=== PATIENT | male | born 1945 | race Caucasian/White ===

== ENCOUNTER 2020-11-06 08:02 | Outpatient (CLI) | payer MEDICARE, SELFPAY ==
[2020-11-06 08:17] LABS: Basophils Absolute Auto 0.02 K/mm3 (0.00-0.10); Basophils Percent Auto 0.2 % (0.0-1.0); Eosinophils Percent Auto 3.5 % (1.0-6.0); Hematocrit 40.8 % (37.0-46.0); Hemoglobin 13.1 g/dL (12.4-15.3); Immature Granulocyte Absolute 0.02 K/mm3 (0.00-0.00); Immature Granulocyte Percent A 0.2 % (0.0-0.0); Lymphocytes Absolute Auto 2.36 K/mm3 (1.10-4.50); Lymphocytes Percent Auto 27.6 % (18.0-42.0); Mean Corpuscular HGB Conc 32.1 g/dL (32.0-36.0); Mean Corpuscular Hemoglobin 27.8 pg (27.0-31.0); Mean Corpuscular Volume 86.6 fL (78.0-102.0); Mean Platelet Volume 9.7 fl (8.7-11.0); Monocytes Percent Auto 9.4 % (2.0-11.0); Neutrophils Absolute Auto 5.1 K/mm3 (1.7-7.2); Neutrophils Percent Auto 59.1 % (50.0-70.0); Platelet Count Result 333 K/mm3 (150-420); Red Blood Count 4.71 M/mm3 (4.70-6.10); Red Cell Distribution Width 15.2 % (11.6-14.4); White Blood Count 8.6 K/mm3 (4.8-10.8)
[2020-11-06 08:23] LABS: Add Urine Microscopic? NO; Appearance Urine Clear (Clear); Bilirubin Urine Negative (Negative); Blood Urine Negative (Negative); Color Urine Yellow (Yellow); Glucose Urine UA Negative (Negative); Ketones Urine Negative (Negative); Leukocyte Esterase Ur Negative (Negative); Nitrate Urine Negative (Negative); Protein Urine Negative (Negative); Urobilinogen Urine 0.2 mg/dL (0.2-1.0)
[2020-11-06 08:42] LABS: Hemoglobin A1C 6.2 % (<5.7)
[2020-11-06 09:06] LABS: Alanine Aminotransferase 35 U/L (16-63); Albumin Level 3.9 g/dL (3.4-5.0); Alkaline Phosphatase 83 U/L (46-116); Anion Gap 6 mmol/L (8-16); Aspartate Amino Transferase 13 U/L (15-37); Bilirubin,Total 0.6 mg/dL (0.00-1.00); Blood Urea Nitrogen 13 mg/dL (7-18); Carbon Dioxide 30 mmol/L (21-32); Chloride 104 mmol/L (98-108); Cholesterol 175 mg/dL (0-200); Estimated Glomerular Filt Rate > 60; Glucose 105 mg/dL (70-99); HDL Direct 45 mg/dL (40-60); LDL Cholesterol Calculated 118 mg/dL (<130); Osmolality Calculated 290 mOsm/kg (285-295); Potassium 4.3 mmol/L (3.5-5.1); Sodium 140 mmol/L (136-145); Total Protein 7.1 g/dL (6.4-8.2); Triglycerides 59 mg/dL (0-150)
== END 2020-11-06 08:03 | disposition home or self-care (01) ==
LOC: CHSLAB 08:08
PROVIDERS: PCP Internal Medicine; Visit Provider Internal Medicine
DX: R73.01 Impaired fasting glucose (principal); Z00.00 Encounter for general adult medical examination without abnormal findings; E78.2 Mixed hyperlipidemia; D64.9 Anemia, unspecified; Z12.5 Encounter for screening for malignant neoplasm of prostate
CPT/HCPCS: 36415; 80053; 80061; 81003; 83036; 84153; 85025; G0103

== ENCOUNTER 2021-03-31 08:31 | Outpatient (CLI) | payer MEDICARE, SELFPAY ==
[2021-03-31 11:46] LABS: Alanine Aminotransferase 37 U/L (16-63); Albumin Level 3.8 g/dL (3.4-5.0); Alkaline Phosphatase 78 U/L (46-116); Anion Gap 12 mmol/L (8-16); Aspartate Amino Transferase 20 U/L (15-37); Bilirubin,Total 0.4 mg/dL (0.00-1.00); Blood Urea Nitrogen 20 mg/dL (7-18); Calcium 8.8 mg/dL (8.5-10.1); Carbon Dioxide 26 mmol/L (21-32); Chloride 106 mmol/L (98-108); Estimated Glomerular Filt Rate > 60; Glucose 100 mg/dL (70-99); Osmolality Calculated 300 mOsm/kg (285-295); Potassium 4.6 mmol/L (3.5-5.1); Sodium 144 mmol/L (136-145)
== END 2021-03-31 08:32 | disposition home or self-care (01) ==
LOC: CHSLAB 08:33
PROVIDERS: PCP Internal Medicine; Visit Provider Internal Medicine
DX: R73.01 Impaired fasting glucose (principal)
CPT/HCPCS: 36415; 80053; 83036

== ENCOUNTER 2021-04-07 01:09 | Day surgery (SDC) | payer MEDICARE, SELFPAY ==
[2021-03-30 10:11] VITALS: BMI 24.3
[2021-04-07 06:21] VITALS: BP 145/77; PULSE 83; RESP 18; TEMP 36.2; O2SAT 100; BMI 22.8
[2021-04-07] MEDS: LACTATED RINGERS 1,000 ML 150 ML IV CONT (06:33)
--- NOTE | 2021-04-07 06:45 | WPDANESEPPF ---
Anes - Initial Pre Proc Eval Procedure: Operation Date: 04/07/21 07:30 Proposed Procedures p Colonoscopy - Alvaro Moser DO Date/Time: 04/07/21 06:45 Surgeon: Alvaro Moser DO Pre Op Diagnosis: abnormal MRI scan Patient Data Age: 76 Gender: M Height: 1.91 m Weight: 82.7 kg Last Vital Signs Temp 36.2 C L 04/07/21 06:21 Pulse 83 04/07/21 06:21 Resp 18 04/07/21 06:21 BP 145/77 H 04/07/21 06:21 Pulse Ox 100 04/07/21 06:21 Allergies Allergy/AdvReac Type Severity Reaction Status Date / Time No Known Allergies Allergy Verified 04/07/21 06:15 Home Medications Medication Instructions Recorded Confirmed Type No Home Medications 11/25/20 04/07/21 History Patient hx anesthesia problems: none Family hx anesthesia problems: none PMFSH Past Medical History Medical History High blood pressure History of elevated PSA Surgical History Surgical History No pertinent past surgical history Family History Family History Father Heart disease Parkinsons disease Mother Breast cancer Diabetes mellitus Sibling Hypertension Diabetes mellitus Heart disease Hyperlipidemia Social History Social History Smoking status: Never smoker Alcohol intake: current Alcohol use details: rare Substance use: never Substance use type: does not use Living arrangements: with family Spiritual care concerns: No Anes - Eval Final PreProcedure Day of Procedure 04/07/21 06:45 Patient weight: normal Heart: regular rate and rhythm Lungs: clear to auscultation Airway: Mallampati scale class II Neurological: alert and oriented Last oral intake: >/= 8 hours ASA classification: II Emergent: no Anesthetic plan: proceed Anesthesia type and monitoring: general GIVS and standard monitoring Informed Consent: The patient's anesthetic plan and its attendant risks and benefits were discussed with the patient/family/POA. Questions were solicited and answers provided to the satisfaction of the patient/family/POA.
--- NOTE | 2021-04-07 07:27 | PM.IMHP ---
H&P: HPI History of Present Illness Date/Time: 04/07/21 07:27 Chief Complaint: Abnormal MRI, prostate cancer, screening for colorectal cancer. Narrative: This is a 76-year-old man who presents for screening colonoscopy. He has never had a colonoscopy before. He denies any family history of colon cancer. Denies any hematochezia or melena. He did recently have some imaging for prostate cancer and there was concern for possible invasion to the rectum. Review of Systems Review of Systems: All systems reviewed & are unremarkable except as noted in HPI and below Eyes: Eyes: Denies change in vision ENT: Denies hearing loss, Denies neck pain and Denies sore throat Cardiovascular: Cardiovascular: Denies chest pain and Denies dyspnea Respiratory: Respiratory: Denies cough, Denies dyspnea and Denies wheezing Genitourinary: Genitourinary: Denies hematuria and Denies dysuria Musculoskeletal: Musculoskeletal: Denies arthralgias, Denies joint swelling and Denies neck pain Allergic/Immunologic: Allergic/Immunologic: Denies wheezing PMFSH Past Medical History Medical History High blood pressure History of elevated PSA Surgical History Surgical History No pertinent past surgical history Family History Family History Father Heart disease Parkinsons disease Mother Breast cancer Diabetes mellitus Sibling Hypertension Diabetes mellitus Heart disease Hyperlipidemia Social History Social History Smoking status: Never smoker Alcohol intake: current Alcohol use details: rare Substance use: never Substance use type: does not use Living arrangements: with family Spiritual care concerns: No Meds Home Medications and Allergies Home Medications Medication Instructions Recorded Confirmed Type No Home Medications 11/25/20 04/07/21 History Allergies Allergy/AdvReac Type Severity Reaction Status Date / Time No Known Allergies Allergy Verified 04/07/21 06:15 Vital Signs Vital Signs - 24 hr 04/07/21 06:21 Temperature 36.2 C L Pulse Rate 83 Respiratory Rate 18 Blood Pressure 145/77 H Pulse Oximetry 100 Exam Const: General: alert; No acute distress Orientation/consciousness: patient oriented x3 Limitations: no limitations HENMT: Head: normocephalic and atraumatic Ears: hearing grossly normal bilaterally General nose exam: Normal external nose present and Normal nares present Mouth: Yes Normal oral and palatal mucosa present and Yes moist mucous membranes Eyes: General: appearance normal, both eyes and all related structures Conjunctivae: conjunctivae normal Sclera: sclerae normal Pupils: Equal, round and reactive pupils present EOM: EOMs intact bilaterally Neck: Neck: normal visual inspection, full ROM, no lymphadenopathy, supple and no JVD Lymphatic: no lymphadenopathy noted Chest: Chest palpation & inspection: normal inspection of the chest Resp: Effort & Inspection: normal respiratory effort and able to speak in complete sentences Auscultation: clear to auscultation bilaterally Percussion: percussion normal Cardio: Jugular venous distension: no JVD Rate: regular rate Rhythm: regular rhythm Heart sounds: S1 normal heart sound present and S2 normal heart sound present Peripheral pulses: Peripheral pulses 2+ throughout GI: Inspection: normal to inspection GI Palp: No abdominal tenderness, Yes Soft to palpation, No Guarding due to palpation present (GI), No Hernia present and No Rebound tenderness present Percussion: Yes normal to percussion Auscultation: normal bowel sounds : General: Yes no CVA tenderness Back/Spine/Pelvis: Back: no CVA tenderness Skin: General skin exam: normal color and dry skin Neuro: General: patient oriented x3, gait
[2021-04-07 08:07] VITALS: BP 124/58; PULSE 60; RESP 18; O2SAT 100
[2021-04-07 08:17] VITALS: BP 110/50; PULSE 54; RESP 16; O2SAT 100
[2021-04-07 08:27] VITALS: BP 130/63; PULSE 56; RESP 20; O2SAT 100
== END 2021-04-07 08:35 | disposition home or self-care (01) ==
PROVIDERS: PCP Internal Medicine; Visit Provider Surgery
PROC: 0DJD8ZZ Inspection of Lower Intestinal Tract, Via Natural or Artificial Opening Endoscopic (ICD-10-PCS; CPT 45378; principal; 2021-04-07 07:30)
DX: Z12.11 Encounter for screening for malignant neoplasm of colon (principal); K57.30 Diverticulosis of large intestine without perforation or abscess without bleeding; C61 Malignant neoplasm of prostate
CPT/HCPCS: 45380; 88305; J2704; J7120

== ENCOUNTER 2021-06-14 08:07 | Outpatient (CLI) | payer MEDICARE, SELFPAY ==
--- NOTE | ~2021-06-14 | MR_ITS ---
EXAMINATION: MR pelvis wo/w con DATE: 06/14/2021 10:15 INDICATION: Malignant neoplasm of the prostate TECHNIQUE: Magnetic resonance imaging (MRI) of the pelvis was performed without and with 17 mL Multih ance intravenous contrast. Full-field sequences of the pelvis included axial and coronal T2-weighted SS FSE, axial, sagittal and coronal 2D FIESTA, axial 2D FIESTA FS, axial SSFSE-IR SUNDEEP, axial dual-ech o T1-weighted FSPGR, axial and coronal T1 weighted LAVA, 3D axial T2 Cube, axial diffusion-weighted S E with apparent diffusion coefficient (ADC) maps. Postcontrast sequences included a time course axial T1-weighted LAVA and sagittal and coronal T1-weighted LAVA. COMPARISON: None. FINDINGS: Prostatomegaly measuring 5.7 x 4.9 x 6.2 cm. There is some heterogeneous increased T1 signal in the r ight lobe of the prostate and posteriorly along both the left and right prostatic lobes which could r epresent hemorrhage related to biopsy. There appears be a smooth intact peripheral capsule of the pro state. Loculated nonenhancing region of homogeneous increased T2 signal likely representing hydrogel located between the posterior prostate and the anterior margin of the rectum which measures 4.5 cm cr aniocaudally and up to 3.9 x 1.5 cm maximal transaxial dimensions. Bladder is normal. Visualized port ions of the bowels are unremarkable. Visualized lower poles of the kidneys are normal. No pathologica lly enlarged pelvic or inguinal lymphadenopathy. Mild disc height loss at L4-L5 with minimal degenera tive endplate changes. Marrow signal is otherwise normal with no evident metastatic lesions or other pathologic marrow replacing process. IMPRESSION: 1. Small collection of likely hydrocele is between the rectum and the posterior margin of the enlarge d prostate. 2. No evident metastatic disease. Reviewed, dictated and finalized at location A. IMPRESSION: 1. Small collection of likely hydrocele is between the rectum and the posterior margin of the enlarged prostate. 2. No evident metastatic disease.
--- NOTE | ~2021-06-14 | NM_ITS ---
EXAMINATION: NM bone scan whole body DATE: 06/14/2021 12:44 INDICATION: Malignant neoplasm of the prostate TECHNIQUE: 21.2 mCi Tc-99m HDP was administered intravenously. Delayed whole-body scintigrams were o btained. COMPARISON: Pelvis MRI dated 06/14/2021 FINDINGS: Mild likely degenerative joint centered uptake at the medial compartments of the bilateral knees and at the radial aspect of the bilateral carpi. Small focus of mild increased uptake at the left ischial tuberosity appears to correspond to small enthesophytes and mild tendinopathy at the proximal hamstr ing tendon origin on the prior MRI. Otherwise physiologic distribution of bone and soft tissue activi ty. No evident metastatic disease. IMPRESSION: 1. No evident metastatic disease. Reviewed, dictated and finalized at location A.
[2021-06-14 09:27] LABS: Estimated Glomerular Filt Rate > 60
== END 2021-06-14 08:08 | disposition home or self-care (01) ==
LOC: ANHIMG 08:14
PROVIDERS: PCP Internal Medicine; Visit Provider Radiology Radiation Oncology
DX: C61 Malignant neoplasm of prostate (principal)
CPT/HCPCS: 72197; 78306; A9561; A9577

== ENCOUNTER 2022-02-18 10:29 | Emergency (ER) | payer MEDICARE, SELFPAY ==
[2022-02-18] VITALS (18 sets, daily range): BP systolic 132–161; BP diastolic 81–90; PULSE 76–80; RESP 16–20; TEMP 36.7; O2SAT 97–100
--- NOTE | ~2022-02-18 | XR_ITS ---
EXAMINATION: XR chest 1V portable INDICATION: Pain after fall TECHNIQUE: Portable AP chest at 1058 hours COMPARISON: None available FINDINGS: The lungs are free of acute opacities. No pleural effusion or pneumothorax. The cardiomedia stinal silhouette is normal. IMPRESSION: 1. No acute cardiopulmonary abnormality. Reviewed, dictated and finalized at location A.
--- NOTE | ~2022-02-18 | XR_ITS ---
EXAMINATION: XR hip RT min 2V DATE: 02/18/2022 11:07 INDICATION: Right hip pain after fall, initial encounter TECHNIQUE: Two views of the right hip are obtained on three radiographs. COMPARISON: None. FINDINGS: There is a comminuted intertrochanteric fracture of the right femoral neck. The femoral hea d is well-seated in the acetabulum. No additional fracture is identified. The soft tissues are unrema rkable. IMPRESSION: 1. Comminuted intertrochanteric fracture of the right femoral neck. Reviewed, dictated and finalized at location A.
--- NOTE | 2022-02-18 10:41 | ECG_ITS ---
Measurements Intervals [place] Rate: 75 P: 54 VT: 158 QRS: 5 QRSD: 104 T: 13 QT: 413 QTc: 464 Interpretive Statements SINUS RHYTHM MILD NONSPECIFIC ST DEPRESSION [0.05+ mV ST DEPRESSION] NO PREVIOUS ECG AVAILABLE FOR COMPARISON Electronically Signed On 02-19-2022 7:04:44 CDT by Garcia Bro M.D.
--- NOTE | 2022-02-18 10:58 | ED.LOWEXIN ---
HPI - Extremity Injury (Lower) General Chief Complaint: Extremity Injury, Lower <Yamini Cortez PA-C - Last Filed: 02/18/22 12:39> Stated Complaint: fall, hip injury <Yamini Cortez PA-C - Last Filed: 02/18/22 12:39> Time Seen by Provider: 02/18/22 10:42 <Yamini Cortez PA-C - Last Filed: 02/18/22 12:39> Source: patient and family <Yamini Cortez PA-C - Last Filed: 02/18/22 12:39> Mode of arrival: EMS <Yamini Cortez PA-C - Last Filed: 02/18/22 12:39> Limitations: no limitations <Yamini Cortez PA-C - Last Filed: 02/18/22 12:39> History of Present Illness HPI Narrative: Patient is a 77-year-old male who presents the ED via EMS with report of right hip pain. Patient reports he was washing his car today and tripped over a bucket filled w/ water, landing directly onto his right hip. He did not hit his head or lose consciousness. No prodromal symptoms. He was unable to ambulate after the fall, thus EMS was called. Patient has deformity to right hip with external rotation and shortening of right leg. He states if he does not move, the pain is bearable. No other injuries. No recent cough, cold symptoms, fever. Per family at bedside, patient completed radiation therapy for prostate cancer in August at an outpatient facility in [place], [place] under Dr. Blood, Urology, and Dr. Roberson. Patient takes an aspirin 81 mg daily. No other blood thinners. <Yamini Cortez PA-C - Last Filed: 02/18/22 12:39> Related Data Home Medications: Home Medications Medication Instructions Recorded Confirmed multivitamin 1 tablet PO DAILY 02/18/22 vitamins A,C,N-onxq-ochgyo 14,320 1 cap PO BID 02/18/22 unit-226 mg-200 unit capsule (PreserVision AREDS) <Yamini Cortez PA-C - Last Filed: 02/18/22 12:39> Allergies/Adverse Reactions: Allergies Allergy/AdvReac Type Severity Reaction Status Date / Time No Known Allergies Allergy Verified 02/18/22 10:43 <Yamini Cortez PA-C - Last Filed: 02/18/22 12:39> Review of Systems Review of Systems: CONSTITUTIONAL: Denies fever, chills. EYES: Denies vision changes. CARDIOVASCULAR: Denies chest pain. RESPIRATORY: Denies cough or dyspnea. GASTROINTESTINAL: Denies nausea, vomiting. MUSCULOSKELETAL: Reports right hip pain. Denies back pain. NEUROLOGIC: Denies HI, LOC, headache, numbness, or weakness. <Yamini Cortez PA-C - Last Filed: 02/18/22 12:39> All systems reviewed & are unremarkable except as noted in HPI and below <Yamini Cortez PA-C - Last Filed: 02/18/22 12:39> PMFSH Past Medical History Medical History: Medical History (Updated 02/18/22 @ 12:39 by Yamini Cortez PA-C) High blood pressure History of elevated PSA History of prostate cancer <Yamini Cortez PA-C - Last Filed: 02/18/22 12:39> Surgical History Surgical History: Surgical History No pertinent past surgical history <Yamini Cortez PA-C - Last Filed: 02/18/22 12:39> Family History Family History: Family History Father Heart disease Parkinsons disease Mother Breast cancer Diabetes mellitus Sibling Hypertension Diabetes mellitus Heart disease Hyperlipidemia <Yamini Cortez PA-C - Last Filed: 02/18/22 12:39> Social History Social History: Social History Smoking status: Never smoker Alcohol intake: current Alcohol use details: rare Substance use: never Substance use type: does not use Spiritual care concerns: No <Yamini Cortez PA-C - Last Filed: 02/18/22 12:39> Exam Narrative: GENERAL: Well appearing, well-nourished, non-toxic, in no acute distress. HEAD: Normocephalic, atraumatic. EYES: PERRL/EOMI, conjunctivae clear bilaterally. NECK: Supple. No adenopathy, no masses. RESPIRATORY: Airway patent, respirations nonlabored.
[2022-02-18 11:00] LABS: Basophils Percent Auto 0.6 % (0.2-1.2); Eosinophils Absolute Auto 0.4 K/mm3 (0-0.3); Eosinophils Percent Auto 6.5 % (0-4.4); Hematocrit 40.1 % (42.0-52.0); Hemoglobin 12.7 g/dL (14.0-18.0); Immature Granulocyte Absolute 0.01 K/mm3 (0.00-0.031); Immature Granulocyte Percent A 0.2 % (0-0.5); Lymphocytes Absolute Auto 1.53 K/mm3 (0.9-3.2); Lymphocytes Percent Auto 23.1 % (18.3-44.2); Mean Corpuscular HGB Conc 31.7 g/dl (32-36); Mean Corpuscular Hemoglobin 28.9 pg (26-34); Mean Corpuscular Volume 91.1 fl (80-100); Mean Platelet Volume 10.4 fl (7.4-10.4); Monocytes Absolute Auto 0.7 K/mm3 (0.1-0.6); Monocytes Percent Auto 10.3 % (2.6-8.5); Neutrophils Absolute Auto 3.9 K/mm3 (1.3-6.7); Neutrophils Percent Auto 59.3 % (45.5-73.1); Platelet Count Result 299 k/mm3 (150-375); Red Cell Distribution Width 14.5 % (11.5-14.5); White Blood Count 6.6 K/mm3 (4.5-10.0)
[2022-02-18 11:46] LABS: Anion Gap 5 mmol/L (8-16); Blood Urea Nitrogen 12 mg/dL (9-20); Calcium 8.4 mg/dL (8.4-10.2); Carbon Dioxide 25 mmol/L (22-30); Chloride 108 mmol/L (98-107); Estimated CRCL calculation 74 ml/min; Estimated Glomerular Filt Rate > 60; Glucose 111 mg/dL (65-110); Potassium 3.7 mmol/L (3.4-5.0); Sodium 138 mmol/L (137-145)
[2022-02-18 12:09] LABS: SARS-CoV-2 RNA PCR Negative
[2022-02-18] MEDS: ONDANSETRON INJ 4 MG/2 ML VIAL IV PUSH (12:40)
[2022-02-18] MEDS: MORPHINE SULFATE (*CRX) 4 MG/ML INJ IV PUSH (12:40)
== END 2022-02-18 14:30 | disposition short-term general hospital (02) ==
PROVIDERS: Physician Assistant; Emergency Provider Emergency Medicine; PCP Internal Medicine
DX: S72.141A Displaced intertrochanteric fracture of right femur, initial encounter for closed fracture (principal); Z20.822 Contact with and (suspected) exposure to COVID-19; Z85.46 Personal history of malignant neoplasm of prostate; Z92.3 Personal history of irradiation; Z79.82 Long term (current) use of aspirin; W18.09XA Striking against other object with subsequent fall, initial encounter
CPT/HCPCS: 36415; 71045; 73502; 80048; 85025; 93005; 96374; 96375; 99285; C9803; J2270; J2405; U0003; U0005

== ENCOUNTER 2022-02-28 07:56 | Outpatient (CLI) | payer MEDICARE, SELFPAY ==
[2022-02-28 08:17] LABS: Basophils Absolute Auto 0.02 K/mm3 (0.00-0.10); Basophils Percent Auto 0.3 % (0.0-1.0); Eosinophils Percent Auto 4.3 % (1.0-6.0); Hematocrit 29.5 % (37.0-46.0); Hemoglobin 9.6 g/dL (12.4-15.3); Immature Granulocyte Absolute 0.04 K/mm3 (0.00-0.00); Immature Granulocyte Percent A 0.6 % (0.0-0.0); Immature Platelet Fraction Pct 0.9 % (1.0-7.0); Lymphocytes Absolute Auto 1.01 K/mm3 (1.10-4.50); Lymphocytes Percent Auto 14.5 % (18.0-42.0); Mean Corpuscular HGB Conc 32.5 g/dL (32.0-36.0); Mean Corpuscular Hemoglobin 29.5 pg (27.0-31.0); Mean Corpuscular Volume 90.8 fL (78.0-102.0); Mean Platelet Volume 8.5 fl (8.7-11.0); Monocytes Absolute Auto 0.64 K/mm3 (0.10-0.90); Monocytes Percent Auto 9.2 % (2.0-11.0); Neutrophils Percent Auto 71.1 % (50.0-70.0); Platelet Count Result 652 K/mm3 (150-420); Red Blood Count 3.25 M/mm3 (4.70-6.10); Red Cell Distribution Width 14.3 % (11.6-14.4)
[2022-02-28 08:41] LABS: Alanine Aminotransferase 62 U/L (16-63); Albumin Level 2.5 g/dL (3.4-5.0); Alkaline Phosphatase 118 U/L (46-116); Anion Gap 8 mmol/L (8-16); Aspartate Amino Transferase 34 U/L (15-37); Bilirubin,Total 0.4 mg/dL (0.00-1.00); Blood Urea Nitrogen 18 mg/dL (7-18); Calcium 8.5 mg/dL (8.5-10.1); Carbon Dioxide 27 mmol/L (21-32); Chloride 104 mmol/L (98-108); Cholesterol 143 mg/dL (0-200); Creatine Kinase 95 U/L (39-308); Estimated Glomerular Filt Rate > 60; Glucose 113 mg/dL (70-99); HDL Direct 36 mg/dL (40-60); LDL Cholesterol Calculated 89 mg/dL (<130); Osmolality Calculated 290 mOsm/kg (285-295); Potassium 4.1 mmol/L (3.5-5.1); Sodium 139 mmol/L (136-145); Total Protein 6.3 g/dL (6.4-8.2); Triglycerides 90 mg/dL (0-150)
[2022-02-28 08:43] LABS: Hemoglobin A1C 6.1 % (<5.7)
[2022-02-28 16:22] LABS: Add Urine Microscopic? YES; Appearance Urine Turbid (Clear); Bilirubin Urine Negative (Negative); Blood Urine Negative (Negative); Color Urine Yellow (Yellow); Glucose Urine UA Negative (Negative); Ketones Urine Negative (Negative); Leukocyte Esterase Ur Negative LEU/UL (Negative); Nitrate Urine Negative (Negative); Protein Urine Negative (Negative); Specific Grav Ur 1.025 (1.010-1.020)
[2022-02-28 16:24] LABS: Creatinine Urine 214.17 mg/dL (40-278); Microalbumin Urine Random < 13.0 mg/L
[2022-02-28 16:33] LABS: Amorphous Sediment Urine Heavy; Bacteria Urine Trace /hpf; RBC Urine None seen /hpf (0-2); Squamous Epithelial Cell Urine Rare /hpf (Few); WBC Urine None seen /hpf (0-3)
[2022-02-28 16:34] LABS: Calcium Oxalate Crystals Urine Present /hpf
== END 2022-02-28 07:57 | disposition home or self-care (01) ==
LOC: CHSLAB 07:59
PROVIDERS: PCP Internal Medicine; Visit Provider Internal Medicine
DX: E78.5 Hyperlipidemia, unspecified (principal); I10 Essential (primary) hypertension; N39.0 Urinary tract infection, site not specified; R73.01 Impaired fasting glucose
CPT/HCPCS: 36415; 80053; 80061; 81001; 82043; 82550; 83036; 85025; 85055

== ENCOUNTER 2022-04-05 08:51 | Outpatient (RCR) | payer MEDICARE, SELFPAY ==
--- NOTE | 2022-04-05 10:01 | PTOPEVAL ---
Thank you for referring Jabier Hagen to [facility].? The patient is scheduled to be seen for therapy? __2__x/week for 10 visits. Please review, sign, date and return this plan of care MEGA. I agree with and certify that the following plan of care is medically necessary. Referring Physician Date Admitting Provider: Attending Provider: Iam Hoffman, Referring Provider: *PT Outpatient Evaluation Start: 04/05/22 09:04 Freq: Status: Active Protocol: Document 04/05/22 09:04 OLGA (Rec: 04/05/22 10:00 OLGA [email or web address]) Therapy Assessment Status Assessment Status Assessment Status Evaluation Outpatient Past Medical History Neurological History Hx Neurological Disorders No Significant History Cardiovascular History Hx Cardiac Disorders No Significant History Respiratory History Hx Respiratory Disorders No Significant History Gastrointestinal History Hx Gastrointestinal Disorders No Significant History Genitourinary History Hx Genitourinary Disorders No Significant History Musculoskeletal History Hx Musculoskeletal Disorders No Significant History Hematological History Hx Hematological Disorders No Significant History Endocrine History Hx Endocrine Disorders No Significant History HEENT History Hx Other HEENT Disorders Yes: macular degeneration Integumentary History Hx Skin Disorders No Significant History Reproductive History Hx Reproductive Disorders No Significant History Psychosocial History Hx Psychiatric Disorders No Significant History Pain History History of Any Previous or Ongoing No Significant History Instance of Pain Anesthesia History Hx Anesthesia Reactions No Significant History Evaluation Information Problem Diagnosis right LISY Onset 02/18/22 Subjective Information Pt. reports that he fell after Query Text:As Reported By Patient/ tripping over a bucket while Family washing his car and broke the right hip. He underwent surgery the following day. He reports that he underwent HH therapy for a couple weeks after surgery. He states that he is currently doing daily exercise provided by . He does notes some pain in the right hip still. He states that he is currently using a cane and feels he is not as mobile as he was prior to his injury. He states that he was very active prior to the fall
== END 2022-04-24 14:25 | disposition home or self-care (01) ==
LOC: CHSPT 08:51
PROVIDERS: PCP Internal Medicine; Visit Provider Orthopaedic Surgery Adult Reconstructive Orthopaedic Surgery
DX: M25.551 Pain in right hip (principal); Z96.641 Presence of right artificial hip joint
CPT/HCPCS: 97110; 97112; 97161; 97530

== ENCOUNTER 2022-09-19 07:58 | Outpatient (CLI) | payer MEDICARE, SELFPAY ==
[2022-09-19 08:16] LABS: Add Urine Microscopic? NO; Appearance Urine Clear (Clear); Bilirubin Urine Negative (Negative); Blood Urine Negative (Negative); Color Urine Light Yellow (Yellow); Glucose Urine UA Negative (Negative); Ketones Urine Negative (Negative); Leukocyte Esterase Ur Negative (Negative); Nitrate Urine Negative (Negative); Protein Urine Negative (Negative); Urobilinogen Urine 0.2 mg/dL (0.2-1.0); pH Urine 6.5 (5.0-8.0)
[2022-09-19 08:27] LABS: Basophils Absolute Auto 0.04 K/mm3 (0.00-0.10); Basophils Percent Auto 0.7 % (0.0-1.0); Eosinophils Absolute Auto 0.44 K/mm3 (0.02-0.50); Eosinophils Percent Auto 8.2 % (1.0-6.0); Hematocrit 36.8 % (37.0-46.0); Hemoglobin 11.7 g/dL (12.4-15.3); Immature Granulocyte Absolute 0.01 K/mm3 (0.00-0.00); Immature Granulocyte Percent A 0.2 % (0.0-0.0); Lymphocytes Absolute Auto 1.44 K/mm3 (1.10-4.50); Lymphocytes Percent Auto 26.8 % (18.0-42.0); Mean Corpuscular HGB Conc 31.8 g/dL (32.0-36.0); Mean Corpuscular Hemoglobin 27.9 pg (27.0-31.0); Mean Corpuscular Volume 87.8 fL (78.0-102.0); Monocytes Absolute Auto 0.49 K/mm3 (0.10-0.90); Monocytes Percent Auto 9.1 % (2.0-11.0); Platelet Count Result 309 K/mm3 (150-420); Red Blood Count 4.19 M/mm3 (4.70-6.10); Red Cell Distribution Width 15.3 % (11.6-14.4); White Blood Count 5.4 K/mm3 (4.8-10.8)
[2022-09-19 08:42] LABS: Hemoglobin A1C 6.2 % (<5.7)
[2022-09-19 09:16] LABS: Anion Gap 7 mmol/L (8-16); Blood Urea Nitrogen 13 mg/dL (7-18); Carbon Dioxide 30 mmol/L (21-32); Chloride 106 mmol/L (98-108); Cholesterol 185 mg/dL (0-200); Estimated Glomerular Filt Rate > 60; Ferritin 19 ng/mL (26-388); Glucose 107 mg/dL (70-99); HDL Direct 50 mg/dL (40-60); Iron 75 ug/dL (65-175); LDL Cholesterol Calculated 121 mg/dL (<130); Osmolality Calculated 296 mOsm/kg (285-295); Percent Iron Saturation 22 % (12-57); Potassium 4.5 mmol/L (3.5-5.1); Sodium 143 mmol/L (136-145); Triglycerides 68 mg/dL (0-150); Vitamin B12 391 pg/mL (193-986)
== END 2022-09-19 07:59 | disposition home or self-care (01) ==
LOC: CHSLAB 08:00
PROVIDERS: PCP Internal Medicine; Visit Provider Internal Medicine
DX: D64.9 Anemia, unspecified (principal); R73.01 Impaired fasting glucose; I10 Essential (primary) hypertension
CPT/HCPCS: 36415; 80048; 80061; 81003; 82607; 82728; 83036; 83540; 83550; 85025

== ENCOUNTER 2022-10-04 14:07 | Outpatient (CLI) | payer MEDICARE, SELFPAY ==
--- NOTE | ~2022-10-04 | US_ITS ---
EXAMINATION: US carotid duplex BI DATE: 10/04/2022 15:03 INDICATION: Left carotid bruit TECHNIQUE: Grayscale, color Doppler, and pulsed Doppler images of the cervical carotid arteries were obtained. The degree of vessel stenosis is placed in one of the following categories: normal, <50%, 5 0-69%, >=70% but less than near-occlusion, near-occlusion, or total occlusion. Note that percent sten osis relative to normal distal artery lumen diameter is indirectly measured from velocity measurement s as described by Alan, et al. Radiology 2003; 229:340-346. COMPARISON: None. FINDINGS: RIGHT: The right common carotid artery (CCA) peak systolic velocity (PSV) is 99 cm/s. The right internal car otid artery (ICA) PSV is 76 cm/s. The right ICA end-diastolic velocity (EDV) is 21 cm/s. The right IC A/CCA PSV ratio is 0.8. Grayscale and color Doppler images yield an estimate of <50% diameter reducti on from plaque in the ICA. The external carotid artery (ECA) PSV is 127 cm/s. There is antegrade flow in the right vertebral artery. LEFT: The left CCA PSV is 119 cm/s. The left ICA PSV is 142 cm/s. The left ICA EDV is 29 cm/s. The left ICA /CCA PSV ratio is 1.2. Grayscale and color Doppler images including secondary Doppler criteria yield an estimate of <50% diameter reduction from plaque in the ICA. The ECA PSV is 131 cm/s. There is ante grade flow in the left vertebral artery. IMPRESSION: 1. <50% stenosis in the right internal carotid artery. 2. <50% stenosis in the left internal carotid artery. Reviewed, dictated and finalized at location A. L MACHINIST
== END 2022-10-04 14:08 | disposition home or self-care (01) ==
LOC: CHSIMG 14:08
PROVIDERS: PCP Internal Medicine; Visit Provider Internal Medicine
DX: R09.89 Other specified symptoms and signs involving the circulatory and respiratory systems (principal); I65.23 Occlusion and stenosis of bilateral carotid arteries
CPT/HCPCS: 93880

== ENCOUNTER 2023-01-01 08:00 | Outpatient (CLI) | payer MEDICARE, SELFPAY ==
[2023-01-01 08:20] LABS: Basophils Absolute Auto 0.02 K/mm3 (0.00-0.10); Basophils Percent Auto 0.3 % (0.0-1.0); Eosinophils Absolute Auto 0.36 K/mm3 (0.02-0.50); Eosinophils Percent Auto 5.6 % (1.0-6.0); Hemoglobin 11.3 g/dL (12.4-15.3); Immature Granulocyte Absolute 0.01 K/mm3 (0.00-0.00); Immature Granulocyte Percent A 0.2 % (0.0-0.0); Lymphocytes Absolute Auto 1.35 K/mm3 (1.10-4.50); Lymphocytes Percent Auto 20.9 % (18.0-42.0); Mean Corpuscular HGB Conc 32.3 g/dL (32.0-36.0); Mean Corpuscular Hemoglobin 28.5 pg (27.0-31.0); Mean Corpuscular Volume 88.4 fL (78.0-102.0); Mean Platelet Volume 9.4 fl (8.7-11.0); Monocytes Absolute Auto 0.54 K/mm3 (0.10-0.90); Monocytes Percent Auto 8.4 % (2.0-11.0); Neutrophils Absolute Auto 4.2 K/mm3 (1.7-7.2); Neutrophils Percent Auto 64.6 % (50.0-70.0); Platelet Count Result 278 K/mm3 (150-420); Red Blood Count 3.96 M/mm3 (4.70-6.10); Red Cell Distribution Width 15.7 % (11.6-14.4); White Blood Count 6.5 K/mm3 (4.8-10.8)
[2023-01-01 08:22] LABS: Appearance Urine Clear (Clear); Bilirubin Urine Negative (Negative); Blood Urine Negative (Negative); Color Urine Light Yellow (Yellow); Glucose Urine UA Negative (Negative); Ketones Urine Negative (Negative); Leukocyte Esterase Ur Negative LEU/UL (Negative); Nitrate Urine Negative (Negative); Protein Urine Negative (Negative); Urobilinogen Urine 0.2 mg/dL (0.2-1.0)
[2023-01-01 08:24] LABS: Add Urine Microscopic? NO
[2023-01-01 08:31] LABS: Hemoglobin A1C 5.7 % (<5.7)
[2023-01-01 09:25] LABS: Alanine Aminotransferase 36 U/L (16-63); Albumin Level 3.5 g/dL (3.4-5.0); Alkaline Phosphatase 85 U/L (46-116); Anion Gap 9 mmol/L (8-16); Aspartate Amino Transferase 21 U/L (15-37); Bilirubin,Total 0.3 mg/dL (0.00-1.00); Blood Urea Nitrogen 16 mg/dL (7-18); Calcium 8.8 mg/dL (8.5-10.1); Carbon Dioxide 28 mmol/L (21-32); Chloride 105 mmol/L (98-108); Estimated Glomerular Filt Rate > 60; Glucose 98 mg/dL (70-99); Osmolality Calculated 295 mOsm/kg (285-295); Potassium 4.7 mmol/L (3.5-5.1); Sodium 142 mmol/L (136-145); Total Protein 6.6 g/dL (6.4-8.2); Vitamin B12 848 pg/mL (193-986)
== END 2023-01-01 08:01 | disposition home or self-care (01) ==
LOC: CHSLAB 08:01
PROVIDERS: PCP Internal Medicine; Visit Provider Internal Medicine
DX: D64.9 Anemia, unspecified (principal); E78.2 Mixed hyperlipidemia; R73.01 Impaired fasting glucose
CPT/HCPCS: 36415; 80053; 81003; 82607; 83036; 85025

== ENCOUNTER 2023-07-04 08:01 | Outpatient (CLI) | payer MEDICARE, SELFPAY ==
[2023-07-04 08:26] LABS: Basophils Absolute Auto 0.03 K/mm3 (0.00-0.10); Basophils Percent Auto 0.5 % (0.0-1.0); Eosinophils Absolute Auto 0.35 K/mm3 (0.02-0.50); Eosinophils Percent Auto 6.2 % (1.0-6.0); Hematocrit 36.8 % (37.0-46.0); Hemoglobin 11.8 g/dL (12.4-15.3); Immature Granulocyte Absolute 0.01 K/mm3 (0.00-0.00); Immature Granulocyte Percent A 0.2 % (0.0-0.0); Lymphocytes Absolute Auto 1.34 K/mm3 (1.10-4.50); Lymphocytes Percent Auto 23.8 % (18.0-42.0); Mean Corpuscular HGB Conc 32.1 g/dL (32.0-36.0); Mean Corpuscular Hemoglobin 28.9 pg (27.0-31.0); Mean Corpuscular Volume 90.2 fL (78.0-102.0); Mean Platelet Volume 9.8 fl (8.7-11.0); Monocytes Absolute Auto 0.51 K/mm3 (0.10-0.90); Monocytes Percent Auto 9.1 % (2.0-11.0); Neutrophils Absolute Auto 3.4 K/mm3 (1.7-7.2); Neutrophils Percent Auto 60.2 % (50.0-70.0); Platelet Count Result 292 K/mm3 (150-420); Red Blood Count 4.08 M/mm3 (4.70-6.10); Red Cell Distribution Width 14.6 % (11.6-14.4); White Blood Count 5.6 K/mm3 (4.8-10.8)
[2023-07-04 08:35] LABS: Appearance Urine Clear (Clear); Bilirubin Urine Negative (Negative); Blood Urine Negative (Negative); Color Urine Light Yellow (Yellow); Glucose Urine UA Negative (Negative); Ketones Urine Negative (Negative); Leukocyte Esterase Ur Negative LEU/UL (Negative); Nitrate Urine Negative (Negative); Protein Urine Negative (Negative); Urobilinogen Urine 0.2 mg/dL (0.2-1.0)
[2023-07-04 08:40] LABS: Add Urine Microscopic? NO
[2023-07-04 08:57] LABS: Hemoglobin A1C 5.8 % (<5.7)
[2023-07-04 09:41] LABS: Alanine Aminotransferase 31 U/L (16-63); Albumin Level 3.5 g/dL (3.4-5.0); Alkaline Phosphatase 84 U/L (46-116); Anion Gap 9 mmol/L (8-16); Aspartate Amino Transferase 15 U/L (15-37); Bilirubin,Total 0.4 mg/dL (0.00-1.00); Blood Urea Nitrogen 21 mg/dL (7-18); Calcium 9.1 mg/dL (8.5-10.1); Carbon Dioxide 28 mmol/L (21-32); Chloride 103 mmol/L (98-108); Cholesterol 180 mg/dL (0-200); Estimated Glomerular Filt Rate > 60; Glucose 98 mg/dL (70-99); HDL Direct 47 mg/dL (40-60); LDL Cholesterol Calculated 118 mg/dL (<130); Osmolality Calculated 293 mOsm/kg (285-295); Potassium 4.5 mmol/L (3.5-5.1); Sodium 140 mmol/L (136-145); Total Protein 6.5 g/dL (6.4-8.2); Triglycerides 75 mg/dL (0-150); Vitamin B12 802 pg/mL (193-986)
== END 2023-07-04 08:02 | disposition home or self-care (01) ==
LOC: CHSLAB 08:03
PROVIDERS: PCP Internal Medicine; Visit Provider Internal Medicine
DX: D64.9 Anemia, unspecified (principal); I10 Essential (primary) hypertension; R73.01 Impaired fasting glucose; E78.2 Mixed hyperlipidemia; N39.0 Urinary tract infection, site not specified; D51.9 Vitamin B12 deficiency anemia, unspecified
CPT/HCPCS: 36415; 80053; 80061; 81003; 82607; 83036; 85025

== ENCOUNTER 2024-01-03 07:28 | Outpatient (CLI) | payer MEDICARE, SELFPAY ==
[2024-01-03 07:46] LABS: Basophils Absolute Auto 0.02 K/mm3 (0.00-0.10); Basophils Percent Auto 0.3 % (0.0-1.0); Eosinophils Absolute Auto 0.41 K/mm3 (0.02-0.50); Hemoglobin 11.2 g/dL (12.4-15.3); Lymphocytes Absolute Auto 1.36 K/mm3 (1.10-4.50); Lymphocytes Percent Auto 23.3 % (18.0-42.0); Mean Corpuscular Hemoglobin 27.9 pg (27.0-31.0); Mean Corpuscular Volume 87.1 fL (78.0-102.0); Mean Platelet Volume 9.8 fl (8.7-11.0); Monocytes Absolute Auto 0.52 K/mm3 (0.10-0.90); Monocytes Percent Auto 8.9 % (2.0-11.0); Neutrophils Absolute Auto 3.53 K/mm3 (1.70-7.20); Neutrophils Percent Auto 60.5 % (50.0-70.0); Platelet Count Result 295 K/mm3 (150-420); Red Blood Count 4.02 M/mm3 (4.70-6.10); Red Cell Distribution Width 14.7 % (11.6-14.4); White Blood Count 5.8 K/mm3 (4.8-10.8)
[2024-01-03 07:47] LABS: Appearance Urine Clear (Clear); Bilirubin Urine Negative (Negative); Blood Urine Trace-intact (Negative); Color Urine Yellow (Yellow); Glucose Urine UA Negative (Negative); Ketones Urine Negative (Negative); Leukocyte Esterase Ur Negative LEU/UL (Negative); Nitrate Urine Negative (Negative); Protein Urine Negative (Negative); Specific Grav Ur 1.015 (1.010-1.020); Urobilinogen Urine 0.2 mg/dL (0.2-1.0)
[2024-01-03 07:53] LABS: Add Urine Microscopic? YES; Bacteria Urine None seen /hpf; RBC Urine None seen /hpf (0-2); WBC Urine None seen /hpf (0-3)
[2024-01-03 08:42] LABS: Alanine Aminotransferase 35 U/L (16-63); Albumin Level 3.5 g/dL (3.4-5.0); Alkaline Phosphatase 83 U/L (46-116); Anion Gap 11 mmol/L (4-12); Aspartate Amino Transferase 20 U/L (15-37); Bilirubin,Total 0.3 mg/dL (0.00-1.00); Blood Urea Nitrogen 14 mg/dL (7-18); Calcium 8.8 mg/dL (8.5-10.1); Carbon Dioxide 26 mmol/L (21-32); Chloride 105 mmol/L (98-108); Cholesterol 170 mg/dL (0-200); Creatine Kinase 80 U/L (39-308); Estimated Glomerular Filt Rate > 60; Glucose 110 mg/dL (70-99); HDL Direct 48 mg/dL (40-60); LDL Cholesterol Calculated 109 mg/dL (<130); Osmolality Calculated 295 mOsm/kg (285-295); Potassium 4.1 mmol/L (3.5-5.1); Sodium 142 mmol/L (136-145); Total Protein 6.7 g/dL (6.4-8.2); Triglycerides 65 mg/dL (0-150); Vitamin B12 1243 pg/mL (193-986)
[2024-01-03 08:43] LABS: Prostate Specific Antigen < 0.1 ng/mL (< OR = 4.0)
[2024-01-03 15:56] LABS: Ferritin 32 ng/mL (26-388); Iron 38 ug/dL (65-175)
== END 2024-01-03 07:29 | disposition home or self-care (01) ==
LOC: CHSLAB 07:30
PROVIDERS: PCP Internal Medicine; Visit Provider Internal Medicine
DX: D64.9 Anemia, unspecified (principal); I10 Essential (primary) hypertension; R73.01 Impaired fasting glucose; Z12.5 Encounter for screening for malignant neoplasm of prostate
CPT/HCPCS: 36415; 80053; 80061; 81001; 82550; 82607; 82728; 83036; 83540; 84153; 85025; G0103

== ENCOUNTER 2024-03-13 07:36 | Outpatient (CLI) | payer MEDICARE, SELFPAY ==
[2024-03-13 07:54] LABS: Hematocrit 35.9 % (37.0-46.0); Hemoglobin 11.6 g/dL (12.4-15.3); Mean Corpuscular HGB Conc 32.3 g/dL (32-36); Mean Corpuscular Hemoglobin 28.2 pg (27.0-31.0); Mean Corpuscular Volume 87.3 fL (78.0-102.0); Mean Platelet Volume 9.7 fl (8.7-11.0); Platelet Count Result 300 K/mm3 (150-420); Red Blood Count 4.11 M/mm3 (4.70-6.10); Red Cell Distribution Width 15.2 % (11.6-14.4); White Blood Count 5.5 K/mm3 (4.8-10.8)
[2024-03-13 08:48] LABS: Ferritin 22 ng/mL (26-388); Iron 39 ug/dL (65-175)
== END 2024-03-13 07:37 | disposition home or self-care (01) ==
LOC: CHSLAB 07:37
PROVIDERS: PCP Internal Medicine; Visit Provider Internal Medicine
DX: D64.9 Anemia, unspecified (principal)
CPT/HCPCS: 36415; 82728; 83540; 85027

== ENCOUNTER 2024-04-14 10:03 | Outpatient (CLI) | payer MEDICARE, SELFPAY ==
[2024-04-14 10:14] LABS: Hematocrit 36.2 % (37.0-46.0); Hemoglobin 11.8 g/dL (12.4-15.3); Mean Corpuscular HGB Conc 32.6 g/dL (32-36); Mean Corpuscular Hemoglobin 28.5 pg (27.0-31.0); Mean Corpuscular Volume 87.4 fL (78.0-102.0); Mean Platelet Volume 9.9 fl (8.7-11.0); Platelet Count Result 280 K/mm3 (150-420); Red Blood Count 4.14 M/mm3 (4.70-6.10); Red Cell Distribution Width 15.4 % (11.6-14.4); White Blood Count 6.8 K/mm3 (4.8-10.8)
[2024-04-14 11:40] LABS: Ferritin 41 ng/mL (26-388); Iron 57 ug/dL (65-175)
== END 2024-04-14 10:04 | disposition home or self-care (01) ==
PROVIDERS: PCP Internal Medicine; Visit Provider Internal Medicine
DX: D50.9 Iron deficiency anemia, unspecified (principal)
CPT/HCPCS: 36415; 82728; 83540; 85027

== ENCOUNTER 2024-07-18 07:31 | Outpatient (CLI) | payer MEDICARE, SELFPAY ==
[2024-07-18 07:45] LABS: Add Urine Microscopic? NO; Appearance Urine Clear (Clear); Basophils Absolute Auto 0.03 K/mm3 (0.00-0.10); Basophils Percent Auto 0.5 % (0.0-1.0); Bilirubin Urine Negative (Negative); Blood Urine Negative (Negative); Color Urine Light Yellow (Yellow); Eosinophils Absolute Auto 0.37 K/mm3 (0.02-0.50); Eosinophils Percent Auto 6.6 % (1.0-6.0); Glucose Urine UA Negative (Negative); Hematocrit 37.7 % (37.0-46.0); Hemoglobin 12.4 g/dL (12.4-15.3); Immature Granulocyte Absolute 0.01 K/mm3 (0.00-0.00); Immature Granulocyte Percent A 0.2 % (0.0-0.0); Ketones Urine Negative (Negative); Leukocyte Esterase Ur Negative (Negative); Lymphocytes Absolute Auto 1.42 K/mm3 (1.10-4.50); Lymphocytes Percent Auto 25.5 % (18.0-42.0); Mean Corpuscular HGB Conc 32.9 g/dL (32-36); Mean Corpuscular Hemoglobin 29.2 pg (27.0-31.0); Mean Corpuscular Volume 88.7 fL (78.0-102.0); Mean Platelet Volume 9.5 fl (8.7-11.0); Monocytes Absolute Auto 0.58 K/mm3 (0.10-0.90); Monocytes Percent Auto 10.4 % (2.0-11.0); Neutrophils Absolute Auto 3.16 K/mm3 (1.70-7.20); Neutrophils Percent Auto 56.8 % (50.0-70.0); Nitrate Urine Negative (Negative); Platelet Count Result 293 K/mm3 (150-420); Protein Urine Negative (Negative); Red Blood Count 4.25 M/mm3 (4.70-6.10); Red Cell Distribution Width 14.4 % (11.6-14.4); Urobilinogen Urine 0.2 mg/dL (0.2-1.0); White Blood Count 5.6 K/mm3 (4.8-10.8)
[2024-07-18 08:09] LABS: Creatinine Urine 52.25 mg/dL (40-278); MALB Creatinine Ratio 24.8 mg/g (0-30); Microalbumin Urine Random < 13.0 mg/L
[2024-07-18 08:18] LABS: Hemoglobin A1C 5.8 % (<5.7)
[2024-07-18 09:16] LABS: Alanine Aminotransferase 41 U/L (16-63); Albumin Level 3.7 g/dL (3.4-5.0); Alkaline Phosphatase 93 U/L (46-116); Anion Gap 10 mmol/L (4-12); Aspartate Amino Transferase 20 U/L (15-37); Bilirubin,Total 0.4 mg/dL (0.00-1.00); Blood Urea Nitrogen 17 mg/dL (7-18); Calcium 8.9 mg/dL (8.5-10.1); Carbon Dioxide 28 mmol/L (21-32); Chloride 104 mmol/L (98-108); Cholesterol 179 mg/dL (0-200); Estimated Glomerular Filt Rate > 60; Ferritin 58 ng/mL (26-388); Glucose 97 mg/dL (70-99); HDL Direct 50 mg/dL (40-60); Iron 51 ug/dL (65-175); LDL Cholesterol Calculated 119 mg/dL (<130); Osmolality Calculated 295 mOsm/kg (285-295); Potassium 4.3 mmol/L (3.5-5.1); Sodium 142 mmol/L (136-145); Total Protein 6.7 g/dL (6.4-8.2); Triglycerides 52 mg/dL (0-150); Vitamin B12 1194 pg/mL (193-986)
== END 2024-07-18 07:32 | disposition home or self-care (01) ==
LOC: CHSLAB 07:33
PROVIDERS: PCP Internal Medicine; Visit Provider Internal Medicine
DX: R73.01 Impaired fasting glucose (principal); D64.9 Anemia, unspecified; I10 Essential (primary) hypertension
CPT/HCPCS: 36415; 80053; 80061; 81003; 82043; 82607; 82728; 83036; 83540; 85025

== ENCOUNTER 2025-01-29 07:52 | Outpatient (CLI) | payer MEDICARE, SELFPAY ==
--- OUTSIDE RECORDS SUMMARY | 2025-01-29 08:00 | XMS_ITS | Clinical Summary ---
Author Organization [facility] Address [address] [place] [address] Care Team Providers Care Stripper And Printer Name Role Phone Sharon Amin MD Primary Care Provider [phone] Allergies No known active allergies Medications aspirin 81 mg enteric coated tablet Take 81 mg by mouth daily Active acetaminophen 500 mg capsuleIndicatio ns:Pain Take 2 capsules (1,000 mg total) by mouth every 8 (eight) hours 90 tablet 2 Active Additional Information Patient not taking.Reported on 04/03/2022 cyclobenzaprine (FLEXERIL) 5 mg tablet Take 1 tablet (5 mg total) by mouth 3 (three) times a day 30 tablet 2 Active Additional Information Patient not taking.Reported on 04/03/2022 apixaban (ELIQUIS) 2.5 mg tabletIndication s:VTE Prophylaxis Following Ortho Surgery Take 1 tablet (2.5 mg total) by mouth 2 (two) times a day 60 tablet 2 Active Additional Information Patient not taking.Reported on 04/03/2022 polyethylene glycol (MIRALAX) 17 gram packetIndication s:constipation Take 1 packet (17 g total) by mouth daily 10 packet 2 Active Additional Information Patient not taking.Reported on 04/03/2022 senna-docusate (PERICOLACE) 8.6-50 mg Take 1 tablet by mouth 2 (two) times a day 10 tablet Active Additional Information Patient not taking.Reported on 04/03/2022 oxyCODONE (ROXICODONE) 5 mg immediate release tabletIndication s:Pain Take 1 tablet (5 mg total) by mouth every 4 (four) hours as needed for pain 30 tablet Active Additional Information Patient not taking.Reported on 04/03/2022 vit E-F-vknvgj-zinc- lutein 226-90-0.8-5 mg capsule Take by mouth Active fbrhrkpo-flj-BX- lycopen-lutein 0.4 mg-300 mcg- 250 mcg tabletIndication s:Vitamin Deficiency Prevention 1 tablet Active Active Problems Problem Noted Date Diagnosed Date Closed displaced fracture of right femoral neck 02/18/2022 Social History Tobacco Use Types Packs/Day Years Used Date Smoking Tobacco: Never Smokeless Tobacco: Never AUDIT-C Answer Date Recorded Q1: How often do you have a drink containing alc ohol? Never 02/19/2022 Average Number of Drinks Not on file 022 Frequency of Binge Drinking Not on file 01/26 PHQ-2 Answer Date Recorded PHQ-2 Total Score (If total score is 3 or more points, staff should administer the PHQ-9) 0 02/18/2022 Sex and Gender Information Value Date Recorded Sex Assigned at Not on file Legal Sex Male 12:09 PM CDT Gender Identity Not on file Sexual Orientation Not on file Obstetrics History Last Filed Vital Signs Vital Sign Reading Time Taken Comments Blood Pressure 125/70 02/22/2022 9:00 AM CDT Pulse 97 02/22/2022 9:41 AM CDT Temperature 36.6 C (97.9 F) 02/22/2022 4:56 AM CDT Respiratory Rate 22 02/21/2022 11:1 3 PM CDT Oxygen Saturation 97% 02/22/2022 9:41 AM CDT Inhaled Oxygen Concentration - - Weight 87.9 kg (193 lb 11.2 oz) 02/21/2022 5:25 AM CDT Height 190.5 cm (6' 3) 02/18/2022 6:53 PM CDT Body Mass Index 24.21 02/18/2022 6:53 PM CDT Plan of Treatment Health Maintenance Due Date Last Done Comments Hepatitis C Screening 1945 Hepatitis B Screening 1965 Zoster Vaccine (1 of 2) 1997 Well Visit 65+ 02/10/2012 Depression Screening 02/18/2023 02/18/2022, 02/19/20 22 Fall Risk Assessment 02/22/2023 02/22/2022 Covid-19 Vaccine (5 - 2023-2 5 season) 2024 01/13/2022, 06/07/2021, 10/20/2020, Additional history exists Influenza Vaccine (Season Ended) 2025 DTaP/Tdap/Td Vaccine (2 - Td or Tdap) 02/14/2031 02/14/2021 Pneumococcal vaccine 65+ Completed 11/11/2020, 08/27 Medical Devices Implanted Type Area Collar Packer Device Identifier Shelf Expiration Date Model / Serial / Lot [employer] G7 58mm Limit 4 Hole Hip G Hemisphere Offset Shell Acetabular [id number] - [id number] Implanted:Qty: 1 on 02/19/2022 by Christiano Prakash MD at [facility] Other - see comments Right: Hip [employer] [id number] 06/22/2031 [id number] / / [id number] Description:G7 [place] Ti Acet abular Shell 4 Hole [employer] Trilogy 6.5mm 30mm Self Tap Acetabular Cortical Screw Bone [id number] - [id number] Implanted:Qty: 1 on 02/19/2022 by Christiano Prakash MD at [facility] Right: Hip [employer] [id number] 11/21/2031 [id number] / / [id number] [employer] Trilogy 6.5mm 40mm Self Tap Hip Acetabular Cortical Screw Bone [id number] - [id number] Implanted:Qty: 1 on 02/19/2022 by Christiano Prakash MD at [facility] Right: Hip [employer] [id number] 12/04/2031 [id number] / / [id number] [employer] G7 40mm Lumen Hip G Liner Acetabular Longevity Sterile Latex Free [id number] - [id number] Implanted:Qty: 1 on 02/19/2022 by Christiano Prakash MD at [facility] Right: Hip [employer] [id number] 11/15/[id number] / / [id number] [employer] Cable-Ready 1.8mm 635cm Cerclage Crimp Trochanter Cable [id number] - [id number] Implanted:Qty: 1 on 02/19/2022 by Christiano Prakash MD at [facility] Right: Hip [employer] [id number] 01/07/2032 [id number] / / [id number] [employer] Taperloc 156mm Type 1 Press Fit Reduce Hip 133d 18 High Offset [id number] - [id number] Implanted:Qty: 1 on 02/19/2022 by Christiano Prakash MD at [facility] Right: Hip [employer] [id number] 03/22/2031 [id number] / / [id number] [employer] G7 40mm Hip Head Femoral Biolox Delta Biolox Option 650-1058 - [id number] Implanted:Qty: 1 on 02/19/2022 by Christiano Prakash MD at [facility] Right: Hip [employer] [id number] 09/09/2031 [id number] / / [id number] [employer] G7 Type 1 Hip -3mm Offset Taper Sleeve Centering Titanium Biolox 650-1065 - [id number] Implanted:Qty: 1 on 02/19/2022 by Christiano Prakash MD at [facility] Right: Hip [employer] [id number] 01/09/2031 650-1065 / / [id number] Insurance MEDICARE MEDICARE [facility] Advance Directives For more information, please contact: [phone] * Full Code (Latest Code Status on File) Date Activated Date Inactivated Comments 02/18/2022 8:37 PM 02/22/2022 4:53 PM Care Teams Stripper And Printer Relationship Specialty Start Date End Date Sharon Amin MD [address] [place] [address] PCP - General Internal Medicine 02/18/22
--- OUTSIDE RECORDS SUMMARY | 2025-01-29 08:00 | XMS_ITS | Referral Summary ---
Author Organization [facility] Address [address] [place] [address] Care Team Providers Care Cotton Factor Name Role Phone Sharon Amin MD Primary Care Provider [phone] Allergies No known active allergies Medications aspirin [...] Information Patient not taking.Reported on 04/03/2022 vit E-U-zfhqtm-zinc- lutein 226-90-0.8-5 mg capsule Take by mouth Active fwjjytex-ltf-IX- lycopen-lutein 0.4 mg-300 mcg- 250 mcg tabletIndication [...] on file Sexual Orientation Not on file Last Filed Vital Signs Vital Sign Reading [...] 02/18/2022 6:53 PM CDT Plan of Treatment Not on file Medical Devices Implanted Type Area Hydrogenation Still Operator Device Identifier Shelf Expiration Date Model / Serial / Lot [employer] G7 58mm Limit 4 Hole Hip G Hemisphere Offset Shell Acetabular [id number] - [id number] Implanted:Qty: 1 on 02/19/2022 by Christiano Prakash MD at [facility] Other - see comments Right: Hip [employer] [id number] 06/22/2031 [id number] / / [id number] Description:G7 [place] Ti Acet abular Shell 4 Hole [employer] Trilogy 6.5mm 30mm Self Tap Acetabular Cortical Screw Bone [id number] - [id number] Implanted:Qty: 1 on 02/19/2022 by Christiano Prakash MD at [facility] Right: Hip [employer] [id number] 11/21/2031 [id number] / / [id number] [employer] Trilogy 6.5mm 40mm Self Tap Hip Acetabular Cortical Screw Bone [id number] - [id number] Implanted:Qty: 1 on 02/19/2022 by Christiano Prakash MD at [facility] Right: Hip [employer] [id number] 12/04/2031 [id number] / / [id number] [employer] G7 40mm Lumen Hip G Liner Acetabular Longevity Sterile Latex Free [id number] - [id number] Implanted:Qty: 1 on 02/19/2022 by Christiano Prakash MD at [facility] Right: Hip [employer] [id number] 11/15/[id number] / / [id number] [employer] Cable-Ready 1.8mm 635cm [place]clage Crimp Trochanter Cable [id number] - [id number] Implanted:Qty: 1 on 02/19/2022 by Christiano Prakash MD at [facility] Right: Hip [employer] [id number] 01/07/2032 [id number] / / [id number] [employer] Taperloc 156mm Type 1 Press Fit Reduce Hip 133d 18 High Offset 51-133159 - [id number] Implanted:Qty: 1 on 02/19/2022 by Christiano Prakash MD at [facility] Right: Hip [employer] [id number] 03/22/2031 51-986486 / / [id number] [employer] G7 40mm Hip Head Femoral Biolox Delta Biolox Option 650-1056 - [id number] Implanted:Qty: 1 on 02/19/2022 by Christiano Prakash MD at [facility] Right: Hip [employer] [id number] 09/09/2031 650-1058 / / [id number] [employer] G7 Type 1 Hip -3mm Offset Taper Sleeve Centering Titanium Biolox 650-1065 - [id number] Implanted:Qty: 1 on 02/19/2022 by Christiano Prakash MD at [facility] Right: Hip [employer] [id number] 01/09/2031 650-1065 / / [id number] Insurance MEDICARE MEDICARE [employer] Advance Directives For more information, please contact: [phone] * Full Code (Latest Code Status on File) Date Activated Date Inactivated Comments 02/18/2022 8:37 PM 02/22/2022 4:53 PM Care Teams Cotton Factor Relationship Specialty Start Date End Date Sharon Amin MD [address] [place] [address] PCP - General Internal Medicine 02/18/22
[2025-01-29 08:06] LABS: Basophils Absolute Auto 0.05 K/mm3 (0.00-0.10); Basophils Percent Auto 0.7 % (0.0-1.0); Eosinophils Absolute Auto 0.46 K/mm3 (0.02-0.50); Eosinophils Percent Auto 6.3 % (1.0-6.0); Hematocrit 40.1 % (37.0-46.0); Hemoglobin 12.7 g/dL (12.4-15.3); Immature Granulocyte Absolute 0.01 K/mm3 (0.00-0.00); Immature Granulocyte Percent A 0.1 % (0.0-0.0); Lymphocytes Absolute Auto 1.66 K/mm3 (1.10-4.50); Lymphocytes Percent Auto 22.6 % (18.0-42.0); Mean Corpuscular HGB Conc 31.7 g/dL (32-36); Mean Corpuscular Hemoglobin 28.9 pg (27.0-31.0); Mean Corpuscular Volume 91.3 fL (78.0-102.0); Monocytes Absolute Auto 0.59 K/mm3 (0.10-0.90); Neutrophils Absolute Auto 4.59 K/mm3 (1.70-7.20); Neutrophils Percent Auto 62.3 % (50.0-70.0); Platelet Count Result 309 K/mm3 (150-420); Red Blood Count 4.39 M/mm3 (4.70-6.10); White Blood Count 7.4 K/mm3 (4.8-10.8)
[2025-01-29 08:49] LABS: Hemoglobin A1C 5.7 % (<5.7)
[2025-01-29 08:54] LABS: Appearance Urine Clear (Clear); Blood Urine Negative (Negative); Color Urine Yellow (Yellow); Glucose Urine UA Negative (Negative); Ketones Urine Negative (Negative); Nitrate Urine Negative (Negative); Protein Urine Negative (Negative)
[2025-01-29 08:55] LABS: Add Urine Microscopic? NO; Bilirubin Urine Negative (Negative); Leukocyte Esterase Ur Negative (Negative); Urobilinogen Urine 0.2 mg/dL (0.2-1.0)
[2025-01-29 09:04] LABS: Alanine Aminotransferase 31 U/L (6-50); Alkaline Phosphatase 72 U/L (38-126); Anion Gap 6 mmol/L (4-12); Aspartate Amino Transferase 29 U/L (17-59); Bilirubin,Total 0.5 mg/dL (0.2-1.3); Blood Urea Nitrogen 16 mg/dL (9-20); Calcium 8.8 mg/dL (8.4-10.2); Carbon Dioxide 26 mmol/L (22-30); Chloride 106 mmol/L (98-107); Cholesterol 175 mg/dL (0-200); Estimated Glomerular Filt Rate > 60; Glucose 96 mg/dL (65-110); HDL Direct 45 mg/dL; Iron 81 ug/dL (49-181); LDL Cholesterol Calculated 109 mg/dL (<130); Osmolality Calculated 287 mOsm/kg (285-295); Potassium 4.6 mmol/L (3.4-5.0); Sodium 138 mmol/L (137-145); Total Protein 6.5 g/dL (6.3-8.2); Triglycerides 103 mg/dL (<150)
== END 2025-01-29 07:53 | disposition home or self-care (01) ==
LOC: CHSLAB 07:54
PROVIDERS: PCP Internal Medicine; Visit Provider Internal Medicine
DX: I10 Essential (primary) hypertension (principal); R73.01 Impaired fasting glucose; E78.2 Mixed hyperlipidemia; D64.9 Anemia, unspecified
CPT/HCPCS: 36415; 80053; 80061; 81003; 82728; 83036; 83540; 85025

== ENCOUNTER 2025-08-26 08:23 | Outpatient (CLI) | payer MEDICARE, SELFPAY ==
--- OUTSIDE RECORDS SUMMARY | 2025-08-26 08:30 | XMS_ITS | Clinical Summary ---
Author Organization [facility] Address [address] [place] [address] Care Team Providers Care Direct Mail Manager Name Role Phone Sharon Amin MD Primary Care Provider [phone] Allergies No known active allergies Medications aspirin [...] Information Patient not taking.Reported on 04/03/2022 vit I-T-viodnj-zinc- lutein 226-90-0.8-5 mg capsule Take by mouth Active obnvlvou-egx-SJ- lycopen-lutein 0.4 mg-300 mcg- 250 mcg tabletIndication [...] on file Medical Devices Implanted Type Area Dry Cleaning Counter Clerk Device Identifier Shelf Expiration Date Model / Serial / Lot [employer] G7 58mm Limit 4 Hole Hip G Hemisphere Offset Shell Acetabular [id number] - [id number] Implanted:Qty: 1 on 02/19/2022 by Christiano Prakash MD at [facility] Other - see comments Right: Hip [employer] [id number] 06/22/2031 [id number] / / [id number] Description:G7 [place] Ti Acet abular Shell 4 Hole [employer] Trilogy 6.5mm 30mm Self Tap Acetabular Cortical Screw Bone [id number] - [id number] Implanted:Qty: 1 on 02/19/2022 by Christiano Prakash MD at [facility] Right: Hip [employer] [id number] 11/21/2031 [id number] / / [id number] [employer] Trilogy 6.5mm 40mm Self Tap Hip Acetabular Cortical Screw Bone [id number] - [id number] Implanted:Qty: 1 on 02/19/2022 by Christiano Prakash MD at [facility] Right: Hip [employer] [id number] 12/04/2031 [id number] / / [id number] [employer] G7 40mm Lumen Hip G Liner Acetabular Longevity Sterile Latex Free [id number] - [id number] Implanted:Qty: 1 on 02/19/2022 by Christiano rPakash MD at [facility] Right: Hip [employer] [id number] 11/15/2026200997483414 / / [id number] [employer] Cable-Ready 1.8mm 635cm Cerclage Crimp Trochanter Cable [id number] - [id number] Implanted:Qty: 1 on 02/19/2022 by Christiano Prakash MD at [facility] Right: Hip [employer] [id number] 01/07/2032 [id number] / / [id number] [employer] Taperloc 156mm Type 1 Press Fit Reduce Hip 133d 18 High Offset 51-721422 - [id number] Implanted:Qty: 1 on 02/19/2022 by Christiano Prakash MD at [facility] Right: Hip [employer] [id number] 03/22/2031 [id number] / / [id number] [employer] G7 40mm Hip Head Femoral Biolox Delta Biolox Option 650-1050 - [id number] Implanted:Qty: 1 on 02/19/2022 by Christiano Prakash MD at [facility] Right: Hip [employer] [id number] 09/09/2031 650-1058 / / [id number] [employer] G7 Type 1 Hip -3mm Offset Taper Sleeve Centering Titanium Biolox 650-1065 - [id number] Implanted:Qty: 1 on 02/19/2022 by Christiano Prakash MD at [facility] Right: Hip [employer] [id number] 01/09/2031 650-1065 / / [id number] Insurance MEDICARE MEDICARE [employer] Advance Directives For more information, please contact: [phone] * Full Code (Latest Code Status on File) Date Activated Date Inactivated Comments 02/18/2022 8:37 PM 02/22/2022 4:53 PM Care Teams Direct Mail Manager Relationship Specialty Start Date End Date Sharon Amin MD [address] [place] [address] PCP - General Internal Medicine 02/18/22
[2025-08-26 08:52] LABS: Hematocrit 40.4 % (37.0-46.0); Hemoglobin 13.0 g/dL (12.4-15.3); Mean Corpuscular HGB Conc 32.2 g/dL (32-36); Mean Corpuscular Hemoglobin 29.6 pg (27.0-31.0); Mean Corpuscular Volume 92.0 fL (78.0-102.0); Platelet Count Result 353 K/mm3 (150-420); Red Blood Count 4.39 M/mm3 (4.70-6.10); White Blood Count 7.8 K/mm3 (4.8-10.8)
[2025-08-26 09:06] LABS: Appearance Urine Clear (Clear); Glucose Urine UA Negative (Negative); Leukocyte Esterase Ur Negative (Negative); Nitrate Urine Negative (Negative); Specific Grav Ur 1.010 (1.010-1.020)
[2025-08-26 09:20] LABS: Hemoglobin A1C 5.4 % (<5.7)
[2025-08-26 09:23] LABS: Add Urine Microscopic? YES
[2025-08-26 10:07] LABS: Alanine Aminotransferase 37 U/L (6-50); Albumin Level 4.4 g/dL (3.5-5.1); Alkaline Phosphatase 83 U/L (38-126); Anion Gap 12 mmol/L (4-12); Aspartate Amino Transferase 34 U/L (17-59); Bilirubin,Total 0.3 mg/dL (0.2-1.3); Blood Urea Nitrogen 18 mg/dL (9-20); Calcium 9.2 mg/dL (8.4-10.2); Carbon Dioxide 25 mmol/L (22-30); Chloride 108 mmol/L (98-107); Cholesterol 197 mg/dL (0-200); Estimated Glomerular Filt Rate > 60; Glucose 99 mg/dL (65-110); HDL Direct 52 mg/dL; Osmolality Calculated 301 mOsm/kg (285-295); Potassium 4.5 mmol/L (3.4-5.0); Sodium 145 mmol/L (137-145); Total Protein 6.9 g/dL (6.3-8.2); Triglycerides 88 mg/dL (<150)
== END 2025-08-26 08:24 | disposition home or self-care (01) ==
LOC: CHSLAB 08:24
PROVIDERS: PCP Internal Medicine; Visit Provider Internal Medicine
DX: D64.9 Anemia, unspecified (principal); I10 Essential (primary) hypertension; R73.01 Impaired fasting glucose
CPT/HCPCS: 36415; 80053; 80061; 81001; 83036; 85027